=== PATIENT | female | born 2000 | race African-American/Black ===

== ENCOUNTER 2020-12-18 08:26 | Emergency (ER) | payer OTHER ==
[~2020-12-18] VITALS: Ht 167.6 cm; Wt 112.0 kg
[2020-12-18] MEDS ORDERED: SKEL800 MT (11:59)
[2020-12-18] MEDS ORDERED: IBUP-2029 MT (11:59)
[2020-12-18 12:09] VITALS: BP 112/79
== END 2020-12-18 12:10 | disposition home or self-care (01) ==
LOC: ER 08:26
DX: S16.1XXA Strain of muscle, fascia and tendon at neck level, initial encounter (principal); I49.9 Cardiac arrhythmia, unspecified; V49.9XXA Car occupant (driver) (passenger) injured in unspecified traffic accident, initial encounter; Y93.89 Activity, other specified; Y92.89 Other specified places as the place of occurrence of the external cause; Y99.8 Other external cause status
CPT/HCPCS: 72070; 93005; 99285